=== PATIENT | male | born 1990 | race Caucasian/White ===

== ENCOUNTER 2017-01-19 00:13 | Emergency (ER) | payer OTHER ==
[2017-01-19 00:19] VITALS: BP 121/69; PULSE 53; RESP 16; TEMP 98.6; O2SAT 96
--- NOTE | 2017-01-19 00:29 | EDPHY ---
H & P Stated Complaint: c/o pain in R medial foot x 2 weeks, pt says no improvement HPI/ROS: HPI CHIEF COMPLAINT: Right foot pain HISTORY OF PRESENT ILLNESS: this patient 26-year-old male who presents emergency room with right foot pain. Patient states 2 weeks ago was playing basketball he thinks he injured the ball of his right foot over the 1st metatarsal. Plantar side. He does not remember exactly the mechanism. He denies any other injury. He states he has had persistent pain for the past 2 weeks able to bear weight on it. It is not improved. No significant swelling. He is able to ambulate. Past Medical History: Denies medical history Past Surgical History: right leg surgery Social History: denies daily use of drugs alcohol tobacco products Family History: noncontributory ROS REVIEW OF SYSTEMS: A comprehensive 10 point review of systems is otherwise negative aside from elements mentioned in the history of present illness. Exam Constitutional triage nursing summary reviewed, vital signs reviewed, awake/ alert. Eyes normal conjunctivae and sclera, EOMI, PERRLA. HENT normal inspection, atraumatic, moist mucus membranes, no epistaxis, neck supple/ no meningismus, no raccoon eyes. Respiratory clear to auscultation bilaterally, normal breath sounds, no respiratory distress, no wheezing. Cardiovascular rate normal, regular rhythm, no murmur, no edema, distal pulses normal. Gastrointestinal soft, non-tender, no rebound, no guarding, normal bowel sounds, no distension, no pulsatile mass. Genitourinary no CVA tenderness. Musculoskeletal right foot: neurovascularly intact good DP. Good cap refill. Good sensation. Tender palpation over the base of the 1st metatarsal plantar region. No obvious swelling no ecchymosis. No crepitus.no midline vertebral tenderness, full range of motion, no calf swelling, no tenderness of extremities, no meningismus, good pulses, neurovascularly intact. Skin pink, warm, & dry, no rash, skin atraumatic. Neurologic awake, alert and oriented x 3, AAOx3, moves all 4 extremities equally, motor intact, sensory intact, CN II-XII intact, normal cerebellar, normal vision, normal speech. Psychiatric normal mood/affect. Heme/Lymph/Immune no lymphadenopathy. Differential Diagnosis: Foot contusion, soft tissue injury, bony fracture, bony contusion, tendinitis Medical Decision Making: Plan for this patient will x-ray right foot to evaluate for small fracture. Will recommend crutches, and podiatry follow-up. Re-evaluation: ED x-ray right foot: Negative for acute fracture. Image interpreted by myself. [id number]: Patient be placed on crutches walking boot. Follow up with Podiatry. Elevate his leg. Anti-inflammatory pain medicine ice pack. He understands. Return emergency room if there is any worsening symptoms questions or concerns. Source: Patient - Medical/Surgical History Hx Asthma: No Hx Chronic Respiratory Disease: No Hx Diabetes: No Hx Cardiac Disease: No Hx Renal Disease: No Hx Cirrhosis: No Hx Alcoholism: No Hx HIV/AIDS: No Hx Splenectomy or Spleen Trauma: No Other PMH: R leg osteotomy. does not vaccinate - Social History Smoking Status: Never smoked Constitutional: Initial Vital Signs Temperature (C) 37 C 01/19/17 00:16 Heart Rate 53 L 01/19/17 00:16 Respiratory Rate 16 01/19/17 00:16 Blood Pressure 121/69 H 01/19/17 00:16 O2 Sat (%) 96 01/19/17 00:16 O2 Delivery Mode Room Air Allergies/Adverse Reactions: No Known Allergies Allergy (Verified 01/19/17 00:19) Home Medications: Medication Instructions Recorded No Medications [NO HOME 12/16/11 MEDICATIONS] Departure - Departure Disposition: Home, Routine, Self-Care Clinical Impression: Foot contusion Qualifiers: Encounter type: initial encounter Laterality: right Qualified Code(s): S90.31XA - Contusion of right foot, initial encounter Condition: Good Instructions: Foot Contusion (ED) Additional Instructions: 1. take anti-inflammatory pain medicine for pain control this includes ibuprofen and Tylenol. 2. Elevate your foot. Use crutches to help ambulate. 3. Return emergency room if you have any worsening symptoms questions concerns but also please follow up with Podiatry. Referrals: NONE *PRIMARY CARE P,. [Primary Care Provider] - As per Instructions David Encinas DPM [Doctor of Podiatric Medicine] - As per Instructions
== END 2017-01-19 00:57 | disposition home or self-care (01) ==
DX: S90.31XA Contusion of right foot, initial encounter (principal); X58.XXXA Exposure to other specified factors, initial encounter; Y93.67 Activity, basketball